=== PATIENT | male | born 1990 | race Caucasian/White ===

== ENCOUNTER 2023-06-25 02:55 | Emergency (ER) | payer OTHER, SELFPAY ==
[2023-06-25 03:06] VITALS: BP 144/108; PULSE 111; RESP 18; TEMP 37; O2SAT 96; BMI 32.4
[2023-06-25 03:18] VITALS: BP 149/106; PULSE 112; RESP 14
[2023-06-25 06:11] VITALS: BP 137/105; PULSE 108; RESP 14; TEMP 36.9; O2SAT 96
--- NOTE | 2023-06-25 07:04 | ED_ITS ---
HPI - Dental/Oral General Chief complaint: Dental/Oral Stated complaint: Dental Pain Time Seen by Provider: 06/25/23 06:59 Source: patient Mode of arrival: ambulatory History of Present Illness HPI Narrative: 33-year-old male with 3 days left lower jaw pain that he feels is swelling but denies any fever chills. Patient denies any difficulty with swallowing or breathing. Related Data Previous Rx's Medication Instructions Recorded amoxicillin 875 mg-potassium 1 tab PO BID 5 days #10 tabs 06/25/23 clavulanate 125 mg tablet Allergies Allergy/AdvReac Type Severity Reaction Status Date / Time No Known Allergies Allergy Unverified 06/26/20 16:49 [No Known Allergies*] Review of Systems Review of Systems: Pertinent positives and negatives as stated in HPI [facility] Past Medical History Source: nursing notes reviewed Social History Social History Smoked in Last 30 Days: No Use of substances other than those prescribed or required for medical reasons: No Advance Directives: No Advance Directives Information Provided: No Physical Exam Vital Signs: Vital Signs: Last Vital Signs Temp 98.5 F 06/25/23 06:11 Pulse 108 H 06/25/23 06:11 Resp 14 06/25/23 06:11 BP 137/105 H 06/25/23 06:11 Pulse Ox 96 06/25/23 06:11 O2 Del Method Room Air 06/25/23 06:11 BMI result Body Mass Index 32.4 VITAL SIGNS: Reviewed. GENERAL: Well developed, well nourished, in no acute distress. HEAD: Normocephalic/atraumatic EYES: PERRLA, EOMI EARS: Ext canals without abnormality NOSE: Nares patent bilateral OROPHARYNX: no oral lesions noted, posterior pharynx clear, mild swelling posterior to the left lower most posterior molar there is some associated mild fullness at the left angle of the jaw but otherwise no trismus and non- erythematous without noted tonsillar enlargement/erythema/exudates NECK: Supple, no adenopathy LUNGS: Normal breath sounds. No adventitious sounds or accessory muscle use. SpO2<96> CARDIOVASCULAR: Regular rate and rhythm without noted murmurs ABDOMEN: Soft, non-tender, non-distended with bowel sounds. MUSCULOSKELETAL: No tenderness, deformities, or effusions noted on gross inspection. EXTREMITIES: No cyanosis, clubbing or edema. SKIN: Inspection of the skin reveals no rashes NEUROLOGIC: Alert and oriented x 4. Strength and sensation to light touch were grossly intact x 4. Medications Administered Discontinued Medications Generic Name Dose Route Start Last Admin Trade Name Pricila PRN Reason Stop Dose Admin Acetaminophen 975 mg 06/25/23 07:04 06/25/23 07:16 Acetaminophen 325 Mg Tablet PO 06/25/23 07:05 975 mg ONCE ONE Administration Amoxicillin/Clavulanate Potassium 875 mg 06/25/23 07:04 06/25/23 07:16 Amoxicillin/Potassium Clav 875 Mg Tablet PO 06/25/23 07:05 875 mg ONCE ONE Administration Ibuprofen 400 mg 06/25/23 07:04 06/25/23 07:16 Ibuprofen 400 Mg Tablet PO 06/25/23 07:05 400 mg ONCE ONE Administration Medical Decision Making Medical Decision Making MDM Narrative: 33-year-old male with history and clinical presentation of toothache and tooth infection without difficulty of breathing or swallowing. Patient received combination analgesics and initial antibiotics and will be discharged on remaining course. Differential Diagnosis Differential Diagnoses: The differential diagnosis associated with the presentation includes Please see the discussion above Admission/Observation Consideration of admission/observation: Escalation of care including admission/observation considered Please see the discussion above Discharge Plan Discharge Clinical Impression: Toothache Patient Disposition: Home, Self-Care Instructions: Toothache (ED) Additional Instructions: 1. Recommend [id number] Tylenol/ibuprofen as needed for pain control. You may also use [id number] Anbesol. 2. Complete the entire course of antibiotics as ordered. 3. Follow-up with a dentist at your earliest convenience. Return to the ER for any worsening symptoms. Prescriptions: New amoxicillin-pot clavulanate 875-125 mg tablet 1 tab PO BID 5 Days Qty: 10 0RF Interventions: ED Discharge Assessment Last Done: 06/25/23 07:19 Discharge Date/Time: 06/25/23 07:19
[2023-06-25] MEDS: Amoxicillin/Potassium Clav 875 MG TABLET PO (07:16)
[2023-06-25] MEDS: Acetaminophen 325 MG TABLET 975 MG PO (07:16)
[2023-06-25] MEDS: Ibuprofen 400 MG TABLET PO (07:16)
== END 2023-06-25 07:19 | disposition home or self-care (01) ==
PROVIDERS: Emergency Provider Student in an Organized Health Care Education/Training Program
DX: K08.89 Other specified disorders of teeth and supporting structures (principal); R68.84 Jaw pain
CPT/HCPCS: 99283; 99284

== ENCOUNTER 2024-12-22 05:04 | Emergency (ER) | payer SELFPAY ==
[2024-12-22 05:07] VITALS: BP 123/89; PULSE 120; RESP 18; TEMP 37.1; O2SAT 97; BMI 31.5
--- NOTE | 2024-12-22 06:13 | PC.NURSE ---
Pt is a&ox4, no signs of distress. Pt ambulates with a steady gait. Pt denies pain at this time Plan of care ongoing.
--- NOTE | 2024-12-22 06:27 | ED.ALLEREA ---
HPI - Allergic Reaction General Chief complaint: Allergic Reaction Stated complaint: full body hives 3 days Time Seen by Provider: 12/22/24 06:26 Source: patient Mode of arrival: ambulatory Limitations: no limitations History of Present Illness ED Provider: Mariajose Martin PA-C HPI narrative: 34 yo male presents to the ER for evaluation of hives. He reports 3 days ago he developed diffuse, red, raised, itchy hives all over his body. They started on his extremities and spread to his trunk. He thinks they are an allergic reactrion to wellbutrin which he recently started. he states he started on a low dose 3 weeks ago, uptitrated the dose 5 days ago and then 2 days after that the hives started. he denies any new lotions, soaps, detergents. no new foods. he reports the hives started to spread to his face which made him come into the ER today. no lip or tongue swelling. no wheezing or SOB. no fevers. no history of similar episodes. he took allergra this morning with minimal improvement. complaint: allergic reaction and hives Onset (ago): day(s) (3) Exposure: medication Symptoms: rash and itching Severity: moderate Treatment prior to arrival: other (angelika) Previous Allergic Reaction History: none Related Data Previous Rx's ?Medication ?Instructions ?Recorded amoxicillin 875 mg-potassium 1 tab PO BID 5 days #10 tabs 06/25/23 clavulanate 125 mg tablet prednisone 10 mg tablets in a dose See Taper PO DAILY #30 ea 12/22/24 pack Allergies Allergy/AdvReac Type Severity Reaction Status Date / Time No Known Allergies Allergy Verified 12/22/24 05:14 [No Known Allergies*] Review of Systems Review of Systems: Yes all other systems are reviewed and are negative [facility] Social History Social History Smoked in Last 30 Days: No Use of substances other than those prescribed or required for medical reasons: No Advance Directives: No Advance Directives Information Provided: Yes Do you have a plan to hurt others: No Plan Physical Exam ED Vital Signs: Vital Signs - 24 hr 12/22/24 05:07 12/22/24 07:22 Temperature 98.7 F 97 F Pulse Rate 120 H 99 Respiratory Rate 18 16 Blood Pressure 123/89 123/82 Pulse Oximetry 97 100 Oxygen Delivery Method Room Air Room Air BMI result Body Mass Index 31.5 Appearance: Alert. Oriented X3. No acute distress. Head: normocephalic, atraumatic. Eyes: Pupils equal, round and reactive to light. ENT: Pharynx normal. No tonsillar swelling or exudate. no lip or tingue swelling. Neck: Normal inspection. Neck supple. CVS: Normal heart rate and rhythm. Pulses normal. Respiratory: No respiratory distress. Breath sounds normal. no wheezing Skin: Skin warm and dry. Normal skin color. Normal skin turgor. Primarily on the trunk there are numerous red, raised, round, urticarial lesions. lesions also present on the forearms, posterior neck. Extremities: No lower extremity edema. No joint swelling. Neuro/psych: Oriented X 3. No motor deficit. No sensory deficit. CN II-XII intact. Normal speech and cognition. Medications Administered Discontinued Medications Generic Name Dose Route Start Last Admin Trade Name Freq PRN Reason Stop Dose Admin Prednisone 50 mg 12/22/24 06:45 12/22/24 07:17 Prednisone 10 Mg Tablet PO 12/22/24 06:46 50 mg ONCE ONE Administration Medical Decision Making Medical Decision Making MDM Narrative: 34 yo male presenting for evaluation of hives x3 days. thinks its an allergic reaction to wellbutrin which he has stopped taking. slight improvement with angelika today will start on prednisone taper for diffuse urticarial rash will advise to continue antihistamine until resolution of symptoms. prn benadryl stable for d/c home with prednisone Differential Diagnosis Differential Diagnoses: The differential diagnosis associated with the presentation includes idiopathic urticaria, allergic reaction, contact dermatitis, eczema, atopic dermatitis Tests considered The following testing was considered but not selected: considered basic lab workup, low suspicion for infectious source Prescription Management I considered prescription management with: Antibiotic Critical Care Time Critical Care Time Critical Care Time: No Discharge Plan Discharge Clinical Impression: Urticaria Patient Disposition: Home, Self-Care Instructions: Urticaria (ED) Additional Instructions: Take the prescribed prednisone taper as directed. Started tomorrow morning, your given the 1st dose today in the ER. Complete the entire course. Recommend continuing daily Angelika for the next 14 days. You can also take intermittent doses of Benadryl as needed for severe itching. Follow-up with your primary care doctor If you develop new or worsening symptoms call 911 or come back to the ER for further evaluation. Prescriptions: New prednisone 10 mg tablets,dose pack See Taper PO DAILY Qty: 30 0RF Taper: Prednisone 40 mg daily for 3 Days and 0 Hour 30 mg daily for 3 Days and 0 Hour 20 mg daily for 3 Days and 0 Hour 10 mg daily for 3 Days and 0 Hour Rx Instructions: 40 mg Daily x3 days, 30 mg daily x3 days, 20 mg daily x3 days, 10 mg daily x3 days No Action amoxicillin-pot clavulanate 875-125 mg tablet 1 tab PO BID 5 Days Qty: 10 0RF Interventions: ED Discharge Assessment Last Done: 12/22/24 07:22 Discharge Date/Time: 12/22/24 07:24 Print Language: Swedish
[2024-12-22] MEDS: predniSONE 10 MG TABLET 50 MG PO (07:17)
[2024-12-22 07:22] VITALS: BP 123/82; PULSE 99; RESP 16; TEMP 36.1; O2SAT 100
== END 2024-12-22 07:24 | disposition home or self-care (01) ==
PROVIDERS: Emergency Provider Internal Medicine
DX: L50.9 Urticaria, unspecified (principal)
CPT/HCPCS: 99283; 99284

== ENCOUNTER 2025-09-23 20:13 | Emergency (ER) | payer BC, SELFPAY ==
[2025-09-23 20:16] VITALS: BP 170/106; PULSE 119; RESP 18; TEMP 36.8; O2SAT 96; BMI 30.4
[2025-09-23 20:52] LABS: Hematocrit 46.5 % (42.0-52.0); Hemoglobin 15.6 g/dl (14.0-18.0); Imm Gran Abs Auto 0.02 X10*3/uL (0.00-0.03); Imm Gran Pct Auto 0.2 % (0.0-0.4); Lymphocytes Absolute Auto 3.2 X10*3/uL (1.2-4.9); MANUAL DIFF FLAG NO; Mean Corpuscular HGB Conc 33.5 g/dl (31.0-36.0); Mean Corpuscular Hemoglobin 28.2 pg (27.0-33.0); Mean Corpuscular Volume 84.1 fL (80.0-98.0); NRBC Abs Auto 0.000 X10*3/uL (0.0-0.012); NRBC Pct Auto 0.0 /100WBC (0.0-0.2); Platelet Count 317 X10*3/uL (160-400); Red Blood Count 5.53 X10*6/uL (4.60-5.80); White Blood Count 11.8 X10*3/uL (4.8-10.8)
[2025-09-23 20:54] LABS: Appearance Urine Clear; Glucose Urine UA Negative (Negative); PH 6.0 (5.0-9.0); Specific Gravity - Urine 1.010 (1.005-1.025)
[2025-09-23 21:06] LABS: Alanine Aminotransferase 21 U/L (0-40); Albumin Level 5.0 g/dL (3.5-5.0); Alkaline Phosphatase 57 U/L (39-117); Anion Gap 14 (12-20); Aspartate Amino Transferase 19 U/L (5-37); Blood Urea Nitrogen 22 mg/dL (9-16); Calcium 9.5 mg/dL (8.4-10.2); Carbon Dioxide 22 mmol/L (22-29); Chloride 106 mmol/L (96-108); Creatinine Clr Calc Pharmacy 118.7; Estimated Glomerular Filt Rate > 60; Lipase 27 U/L (8-78); Potassium 3.8 mmol/L (3.3-5.1); Sodium 138 mmol/L (135-145); Total Protein 7.9 g/dL (6.5-8.0)
--- NOTE | 2025-09-23 22:04 | ED_ITS ---
HPI - Male Genitourinary General Chief complaint: Urogenital-Male Stated complaint: ?UTI Time Seen by Provider: 09/23/25 22:04 History of Present Illness ED Provider: Emerald CHRISTOPHER Narrative: the patient is a 35-year-old male who comes to the emergency room thinking he might have a urinary tract infection. He says that he has had some discomfort with urination for a a few weeks. This is not associated with any definite urgency or frequency. No fever, sweats, chills. No nausea or vomiting. He says that sometimes he feels he has some discomfort across his lower abdomen but billing. He does not have any flank pain. The patient believes that his last sexual encounter was about 4 months ago. He says that he has sex with men. He says he engages in oral sex and does not engage in any anal sex. The patient says that he has been under a lot of stress recently. 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 He says that he has chronic issues with the anxiety. He denies suicidality. Related Data Previous Rx's ?Medication ?Instructions ?Recorded amoxicillin 875 mg-potassium 1 tab PO BID 5 days #10 t abs 06/25/23 clavulanate 125 mg tablet prednisone 10 mg tablets in a dose See Taper PO DAILY #30 ea 12/22/24 pack doxycycline monohydrate 100 mg 100 mg PO BID #14 caps 09/23/25 capsule Allergies Allergy/AdvReac Type Severity Reaction Status Date / Time No Known Allergies (No Known Allergy Verified 09/23/25 20:19 Allergies*) Review of Systems 2 Review of Systems: Yes all other systems are reviewed and are negative [facility] Social History Social History Advance Directives: No Advance Directives Information Provided: Yes Physical Exam 2 Vital Signs: Vital Signs: Last Vital Signs Temp 0 F L 09/23/25 23:07 Pulse 105 H 09/23/25 23:07 Resp 18 09/23/25 23:07 BP 0/0 L 09/23/25 23:07 Pulse Ox 96 09/23/25 22:21 O2 Del Method Room Air 09/23/25 22:21 BMI result Body Mass Index 30.4 Const: Other: The patient is awake and alert, pleasant and cooperative. He has a an anxious affect but does not seem in distress. Orientation/consciousness: patient oriented x3 HEENT: Other: The face is symmetrical. Mucous membranes moist. Eyes: Other: Pupils are round equal, conjunctivae are clear, extraocular movements intact Neck: Neck: Yes normal visual inspection and Yes full ROM Resp: Effort & Inspection: normal respiratory effort Auscultation: clear to auscultation bilaterally Cardio: Rate: regular rate Rhythm: regular rhythm Heart sounds: S1 normal heart sound present and S2 normal heart sound present GI: Other: the abdomen is soft. There is some left upper quadrant tenderness without rebound or guarding. : Other: the patient is circumcised. He has unremarkable external genitalia. No penile lesions. No scrotal lesions. Normal scrotal contents. The scrotum is soft and nontender. Back/Spine/Pelvis: Other: No CVA percussion tenderness Skin: Other: The skin is dry and unremarkable General skin exam: no rashes or lesions noted Neuro: General: patient oriented x3, gait normal, tone normal, moves all extremities, no focal motor deficits and CN's II-XI intact bilaterally Extrem: Other: There is no calf swelling or tenderness. No asymmetry. No peripheral edema. Medications Administered Discontinued Medications Generic Name Dose Route Start Last Admin Trade Name Freq PRN Reason Stop Dose Admin Doxycycline Monohydrate 100 mg 09/23/25 22:54 09/23/25 23:00 Doxycycline Monohydrate 100 Mg Capsule PO 09/23/25 22:55 100 mg ONCE ONE Administration Medical Decision Making Medical Decision Making [facility] Narrative: The patient is a 35-year-old male who describes himself as having history of anxiety and a who also describes himself as having a history of high functioning autism. He presents with a complaint of discomfort with the urination that has been bothering him for a few weeks. He says he has not had any sexual encounters for a few months. He says that he has sex with men but that he does not engage in anal sex. He engages in oral sex. He has had no urethral discharge. His physical exam seems very unremarkable although he is clearly anxious. The patient has a normal urinalysis. Unremarkable CBC and CMP and lipase. My suspicion for any surgical process is very low. I explained to the patient I thought it was unlikely he has a urinary tract infection or cystitis. Clinically he does not seem to have gonorrhea as there was no discharge. I think any STI is probably unlikely as he has not had any sexual encounters for several months. Nevertheless a chlamydial infection could potentially be somewhat insidious. He will give a urine sample for GC and chlamydia testing. He will be started empirically on doxycycline. he looks well enough for outpatient management. In he is tachycardic and somewhat hypertensive. I suspect this is related to anxiety. He has had similar vital signs on previous emergency room visits. Additionally the patient is strongly encouraged to try to get a primary care doctor. He says that he has a insurance through his job at home [employer]. He says that he thinks he can contact his insurance for advice about a PCP. He is also given contact information for several local PCP offices. He should return to the emergency room if significantly worse. Lab Data 09/23/25 20:46 09/23/25 20:46 Labs: Lab Results 09/23/25 09/23/25 Range/Units 20:46 22:58 WBC 11.8 H (4.8-10.8) X10*3/uL RBC 5.53 (4.60-5.80) X10*6/uL Hgb 15.6 (14.0-18.0) g/dl Hct 46.5 (42.0-52.0) % MCV 84.1 (80.0-98.0) fL MCH 28.2 (27.0-33.0) pg MCHC 33.5 (31.0-36.0) g/dl RDW 13.2 (11.0-16.0) % Plt Count 317 (160-400) X10*3/uL MPV 10.2 (9.4-12.4) fL Immature Gran % (Auto) 0.2 (0.0-0.4) % Neut % (Auto) 65.6 (45-73) % Lymph % (Auto) 26.9 (20-40) % [place] % (Auto) 5.7 (2-11) % Eos % (Auto) 1.1 (0-4) % Baso % (Auto) 0.5 (0-2) % Lymph # (Auto) 3.2 (1.2-4.9) X10*3/uL [place] # (Auto) 0.7 (0.1-1.2) X10*3/uL Eos # (Auto) 0.1 (0.0-0.4) X10*3/uL Baso # (Auto) 0.1 (0.0-0.2) X10*3/uL Abs Immat Gran (auto) 0.02 (0.00-0.03) X10*3/uL Absolute Neuts (auto) 7.7 (2.0-8.3) x10*3/uL Absolute Nucleated RBC 0.000 (0.0-0.012) X10*3/uL Nucleated RBC % (auto) 0.0 (0.0-0.2) /100WBC Sodium 138 (135-145) mmol/L Potassium 3.8 (3.3-5.1) mmol/L Chloride 106 (96-108) mmol/L Carbon Dioxide 22 (22-29) mmol/L Anion Gap 14 (12-20) BUN 22 H (9-16) mg/dL Creatinine 0.95 (0.5-1.4) mg/dL Estim Creat Clear Calc 118.7 Estimated GFR > 60 Random Glucose 139 H (60-115) mg/dL Calcium 9.5 (8.4-10.2) mg/dL Total Bilirubin 0.3 (0.0-1.0) mg/dL AST 19 (5-37) U/L ALT 21 (0-40) U/L Alkaline Phosphatase 57 (39-117) U/L C-Reactive Protein 0.40 (< or = 0.50) mg/dL Total Protein 7.9 (6.5-8.0) g/dL Albumin 5.0 (3.5-5.0) g/dL Lipase 27 (8-78) U/L Urine Color Yellow Urine Appearance Clear Urine pH 6.0 (5.0-9.0) Ur Specific [place] 1.010 (1.005-1.025) Urine Protein Negative (Neg-Trace) mg/dL Urine Glucose (UA) Negative (Negative) mg/dL Urine Ketones Negative (Negative) mg/dL Urine Blood Negative (Negative) Urine Nitrite Negative (Negative) Ur Leukocyte Esterase Negative (Negative) Ur N gonorrhoeae DNA (PCR) NOT DETECTED (Not Detect.) Ur Chlamydia DNA (PCR) NOT DETECTED (Not Detect.) Discharge Plan Discharge Clinical Impression: Dysuria Patient Disposition: Home, Self-Care Additional Instructions: Although your urine testing today is not clearly suggesting an infection there are some infections that can be hard to detect. Therefore I think it would be reasonable for you to take the antibiotic doxycycline. please take this medication 2 times a day until done. Also please increase your fluid intake for the next several days. I will call you if there is any additional information on your next urine testing. Please work on getting a primary care provider. You may work through your insurance for possible available primary care providers. you have also been given the contact information for several local primary care offices locally. Return to the emergency room if you feel significantly worse. Prescriptions: New doxycycline monohydrate 100 mg capsule 100 mg PO BID Qty: 14 0RF No Action prednisone 10 mg tablets,dose pack See Taper PO DAILY Qty: 30 0RF Taper: Prednisone 40 mg daily for 3 Days and 0 Hour 30 mg daily for 3 Days and 0 Hour 20 mg daily for 3 Days and 0 Hour 10 mg daily for 3 Days and 0 Hour Rx Instructions: 40 mg Daily x3 days, 30 mg daily x3 days, 20 mg daily x3 days, 10 mg daily x3 days amoxicillin-pot clavulanate 875-125 mg tablet 1 tab PO BID 5 Days Qty: 10 0RF [place]: [facility] [place] [facility] Group, [place]] [facility] [facility] Group, [place]] [facility] [place] [facility] [facility] [Provider Group, Primary Care] [facility] [place] [Provider Group] Lee Ann Phipps MD [Physician, Internal Medicine] Interventions: ED Discharge Assessment Last Done: 09/23/25 23:07 Discharge Date/Time: 09/23/25 23:07 Print Language: Slovenian
[2025-09-23 22:21] VITALS: BP 169/101; PULSE 125; RESP 18; TEMP 36.9; O2SAT 96
[2025-09-23 23:07] VITALS: BP 0/0; PULSE 105; RESP 18; TEMP -17.7; TEMP 0
[2025-09-24 10:03] LABS: CT PCR Urine NOT DETECTED (Not Detect.); NG PCR Urine NOT DETECTED (Not Detect.)
== END 2025-09-23 23:07 | disposition home or self-care (01) ==
PROVIDERS: Emergency Provider Emergency Medicine
DX: R30.0 Dysuria (principal); Z20.2 Contact with and (suspected) exposure to infections with a predominantly sexual mode of transmission
CPT/HCPCS: 36415; 80053; 81003; 83690; 85025; 86140; 87491; 87591; 99283; 99284